=== PATIENT | female | born 1950 | race Caucasian/White ===

== ENCOUNTER 2021-07-02 05:06 | Observation (INO) ==
--- NOTE | 2021-06-18 14:16 | PAT Medication Instructions ---
Medication Instructions Date of Service June 18, 2021 Home Medications citalopram 40 mg tablet (Celexa) 40 mg PO HS omeprazole magnesium 20 mg tablet,delayed release (Prilosec OTC) 20 mg PO DAILY PRN Take morning of surgery With a small sip of water, OTHERWISE NOTHING TO EAT OR DRINK AFTER MIDNIGHT: omeprazole magnesium 20 mg tablet,delayed release (Prilosec OTC) 20 mg PO DAILY PRN (if needed) Take evening before surgery citalopram 40 mg tablet (Celexa) 40 mg PO HS omeprazole magnesium 20 mg tablet,delayed release (Prilosec OTC) 20 mg PO DAILY PRN (if needed) Other Notes If you have any questions please call us at [phone] or [phone] or [phone] or [phone]
--- NOTE | 2021-06-21 11:26 | Anesthesiology Consultation ---
Date of Service June 21, 2021 Assessment & Plan (1) Encounter for pre-operative examination: COVID screening: Per assessment on 06/21: Travel screen negative, no known COVID- 19 positive contacts or current COVID-19 related symptoms. Patient vaccinated. Surgeon arranging preop COVID testing. Awaiting results. Chart Review Chart Review: Acceptable Risk for Surgery and Patient seen in Pre Admission Testing Teaching & Discussion Pre-Anesthesia Teaching/Discussion Notes: Instructed NPO after midnight before surgery,except medications with 15 cc of water. Medication instructions provided according to the PAT guidelines. History Surgery Operation Date: 07/02/21 13:20 Proposed Procedures p Left Total Hip Replacement - Isaac Gonzalez MD Height/Weight Height: 4 ft 11 in Weight: 64.1 kg Allergies Allergy/AdvReac Type Severity Reaction Status Date / Time Bactrim Allergy Unknown . Unverified 06/02/11 20:01 naproxen Allergy Unknown Dyspnea, Verified 06/21/21 11:25 chest pain, feet swelling Penicillins Allergy Unknown Hives Verified 06/18/21 12:05 sulfamethoxazole AdvReac Unknown N/V, Verified 06/21/21 11:25 abdominal pain trimethoprim AdvReac Unknown N/V, Verified 06/21/21 11:25 abdominal pain Medications Home Medications Medication Instructions Recorded Confirmed Last Taken citalopram 40 mg tablet (Celexa) 40 mg PO HS 07/20/19 06/18/21 07/27/19 20:00 omeprazole magnesium 20 mg 20 mg PO DAILY PRN 06/18/21 06/18/21 Unknown tablet,delayed release (Prilosec OTC) Past Medical History Medical History Acid reflux Anxiety and depression Bilateral hip joint arthritis Borderline high cholesterol Hiatal hernia Exercise / Class Metabolic Activity II 4-5 Yardwork/Stairs/Walk up hill (one FS (no CP, no SOB)) Past Family History Family History Other Diabetes Heart disease Stroke Past Surgical History Surgical History History of colonoscopy History of endoscopy History of esophagogastroduodenoscopy (EGD) History of left cataract surgery History of repair of rotator cuff History of right cataract surgery History of tonsillectomy History of total left knee replacement (TKR) Past Anesthesia History No Hx of Anesthesia Complications and No Family Hx of Anesthesia Complications History of PONV No Hx of PONV and Hx of Motion Sickness Social History Smoking Status: Never smoker Do You Dip or Chew Tobacco: No Hx Alcohol Use: Yes Alcohol type: wine alcohol intake frequency: holidays/special occasions only Hx Substance Use: No substance use type: does not use Review of Systems Patient denies chest pain, shortness of breath, dyspnea on exertion, fever, chills, cough, wheezing, palpitations. Physical Exam Vital Signs VITALS BP 110/74 P 56 TEMP 98.0 SP02 95%RA RESP 16 PHYSICAL Mildly decreased cervical extension range of motion. Full TMJ range of motion. TMD 3 finger breaths Mallampati Score 1 Dentition: missing molar Lungs: clear throughout to auscultation Cardiac: regular rate and rhythm, no murmurs noted Spine: normal Carotid arteries: negative bruit Extremities: no edema Lab Results Anesthesia Preop Results Results Anesthesia Widget: WBC 5.67 K/uL (4.8-10.8) 06/21/21 Hgb 13.6 g/dL (12.0-16.0) 06/21/21 Hct 41.8 % (37-47) 06/21/21 Plt 278 K/uL (130-400) 06/21/21 Na 142 mmol/L (136-145) 06/21/21 K 4.5 mmol/L (3.5-5.1) 06/21/21 Cl 110 mmol/L (98-107) H 06/21/21 CO2 30 mmol/L (21-32) 06/21/21 BUN 18 mg/dl (7-18) 06/21/21 Creat 0.76 mg/dl (0.6-1.2) 06/21/21 Glucose Level 100 mg/dl (70-99) H 06/21/21 PT 9.6 Seconds (9.0-12.0) 06/21/21 PTT 23.6 Seconds (21.0-31.0) 06/21/21 INR 0.9 (0.9-1.1) 06/21/21 Blood Type A Negative 06/21/21 Antibody Screen NEGATIVE 06/21/21 Testing Electrocardiogram Date: 06/21/21 SB at 57bpm. Otherwise normal ECG. Chest X-Ray Date: 06/21/21 FINDINGS: PA and lateral chest radiographs are compared to study dated 06/03/2014. Correlation is made with chest CT dated 06/02/2011. The cardiomediastinal silhouette is unremarkable. The lungs appear hyperinflated. There is bibasilar atelectasis. No airspace consolidation or pleural effusion is identified. Right lower lobe pulmonary nodules measure up to 4 mm. These were also seen on 07/19/[address] There are scattered calcified granulomas. There is no pneumothorax. The skeletal structures are osteopenic. The bony thorax appears intact. IMPRESSION: No active disease in the chest. Right lower lobe pulmonary nodules measure up to 4 mm and there are scattered calcified granulomas. These were also seen on a [address] Any follow-up should be based on clinical grounds. Patient denies cardiopulmonary complaints and reports good functional status at PAT visit from same day (06/21/21). Will forward report to PCP for continuity of care.
[2021-07-02] MEDS ORDERED: ceFAZolin 2000MG 2,000 MG/15 ML SYR IV SCH (06:00)
[2021-07-02] MEDS ORDERED: TRANEXAMIC ACID 1,000 MG **IV Pre-op IV SCH (06:00)
[2021-07-02] MEDS ORDERED: BUPIVACAINE LIPOSOME/PF 266 MG, BUPIVACAINE/EPINEPHRINE 50 ML, SODIUM CHLORIDE 0.9% 30 ... INFIL SCH (06:00)
[2021-07-02] MEDS ORDERED: ACETAMINOPHEN 500 MG TAB PO SCH (06:00)
[2021-07-02] MEDS ORDERED: Scopolamine 1 MG TDSY TD SCH (06:00)
[2021-07-02] MEDS ORDERED: GABAPENTIN 300 MG CAP PO SCH (06:00)
[2021-07-02] MEDS ORDERED: LR 60ML/HR IV SCH (06:00)
[2021-07-02] MEDS ORDERED: LR 15ML/HR IV SCH (06:00)
[2021-07-02] MEDS ORDERED: FAMOTIDINE 20 MG TAB PO SCH (06:00)
[2021-07-02] MEDS ORDERED: BUPIVACAINE 0.5 % 5 MG/1 ML PF 10ML VIAL ONE (06:18)
[2021-07-02] MEDS ORDERED: EPINEPHrine INJ 1 MG/ML AMP ONE (06:44)
[2021-07-02] MEDS ORDERED: BUPIVACAINE 0.5 % 5 MG/1 ML MPF 30ML VIAL ONE (06:44)
[2021-07-02] MEDS ORDERED: MIDAZOLAM HCL 1 MG/ML 2ML VIAL ONE (06:48)
[2021-07-02] MEDS ORDERED: fentaNYL citrate 100 MCG/2 ML VIAL ONE (06:48)
[2021-07-02] MEDS ORDERED: MoRPHine SULFATE PF 1 MG/ML 10 ML AMP/VIAL ONE (06:48)
--- NOTE | 2021-07-02 06:54 | History & Physical Bridge Note ---
Date of Service July 02, 2021 History & Physical Bridge Note I have examined the patient, reviewed the History & Physical and in the interval since the performance of the History & Physical I have noted the following changes of clinical significance: no changes noted
[2021-07-02] MEDS ORDERED: MEPERIDINE HCL 25 MG/ML CARP/VIAL IV PRN (06:59)
[2021-07-02] MEDS ORDERED: ePHEDrine sulfate 50 MG/ML AMP IV PRN (06:59)
[2021-07-02] MEDS ORDERED: LACTATED RINGER'S 500 ML IV PRN (06:59)
[2021-07-02] MEDS ORDERED: NALOXONE HCL 0.08 MG in SYRINGE 1.8 ML IV PRN (06:59)
[2021-07-02] MEDS ORDERED: ONDANSETRON INJ 2 MG/ML 2 ML VIAL IV PRN (06:59)
[2021-07-02] MEDS ORDERED: NALOXONE HCL 1 MG in SODIUM CHLORIDE 0.9% 1000ML 1,000 ML IV PRN (06:59)
[2021-07-02] MEDS ORDERED: NALOXONE HCL 0.4 MG/1 ML VIAL/CARP IV PRN ×2 (06:59→10:04)
[2021-07-02] MEDS ORDERED: NALBUPHINE HCL INJ 10 MG/ML AMP IV PRN (06:59)
[2021-07-02] MEDS ORDERED: MoRPHine SULFATE PF 1 MG/ML 10 ML AMP/VIAL INT SPINAL ONE (06:59)
[2021-07-02] MEDS ORDERED: NO NARCOTICS OR SEDATIVES SCH (07:00)
[2021-07-02] MEDS ORDERED: DC INTRASPINAL MORPHINE SCH (07:00)
[2021-07-02] MEDS ORDERED: SODIUM CHLORIDE 0.9% 1000ML 1,000 ML IV SCH (07:00)
[2021-07-02] MEDS ORDERED: PROPOFOL IV EMULSION 10 MG/ML 20 ML VIAL IV ONE (08:14)
[2021-07-02] MEDS ORDERED: LIDOCAINE 2% 2 ML VIAL/AMP(20MG/ML) INFIL ONE (08:14)
--- NOTE | 2021-07-02 08:26 | Post Operative Brief Note ---
PG Immediate Post Op with CF Date of Surgery July 02, 2021 Pre & Post Diagnosis Operation Date: 07/02/21 07:00 Pre-Op Diagnosis: Left Hip Osteoarthritis Post-Op Diagnosis: Left Hip Osteoarthritis I identified the patient and participated in the time-out.: Yes Procedure Operation Date: 07/02/21 07:00 Actual Procedures p Left Total Hip Replacement(Left) - Isaac Gonzalez MD Surgeon Isaac Gonzalez MD Hop Grower MARIE Bangura Estimated Blood Loss 200 Findings Consistent with Post-Op Diagnosis Fluids 1600 cc Specimens Specimen Description: Permanent Solution: A.) Left Femoral Head Drains Ledbetter Catheter (16 albanian 10ml balloon; inserted by Harshad Bangura PA-C without difficulty; urine output monitored throughout entire case by anesthesia staff) Anesthesia Type Spinal MAC Complications none Disposition Accompanied Patient To Recovery: Yes
--- NOTE | 2021-07-02 09:34 | Anesthesiology Progress Note ---
Date of Service July 02, 2021 Anesthesia Post Procedure Vital Signs Vital Signs: Temp Pulse Pulse Resp BP BP Pulse Ox 07/02/21 09:30 97.7 F 68 15 109/50 L 97 07/02/21 09:20 66 13 111/53 L 97 07/02/21 09:10 62 14 101/51 L 96 07/02/21 09:00 70 17 105/49 L 98 07/02/21 08:50 70 16 116/52 L 97 07/02/21 08:40 68 16 101/48 L 94 07/02/21 08:32 97.7 F 77 16 105/40 L 93 07/02/21 06:10 97.7 F 63 20 140/72 97 07/02/21 05:28 97.5 F L 66 18 164/71 H 97 Pain Intensity Left Hip: Pain Intensity: 7 Transfer of Care Handoff Completed per policy Notes Mental Status: alert / awake / arousable and participated in evaluation Patient Amnestic to Procedure: Yes Nausea / Vomiting: adequately controlled Pain: adequately controlled Airway Patency, RR, SpO2: stable & adequate BP & HR: stable & adequate Hydration State: stable & adequate Neuraxial Anesthesia: was administered and sensory block is resolving Anesthetic Complications: no major complications apparent and Pt Satisfied with anesthetic care
[2021-07-02] MEDS ORDERED: diphenhydrAMINE Capsule 25 MG CAP PO STA (09:52)
[2021-07-02] MEDS ORDERED: diphenhydrAMINE Capsule 25 MG CAP ONE (09:56)
[2021-07-02] MEDS ORDERED: ALUMINUM/MAGNESIUM SUSP 30 ML UDC PO PRN (10:04)
[2021-07-02] MEDS ORDERED: METOCLOPRAMIDE HCL INJ 5 MG/ML 2 ML VIAL IV PRN (10:04)
[2021-07-02] MEDS ORDERED: bisacodyL 10 MG SUPP PR PRN (10:04)
[2021-07-02] MEDS ORDERED: MAGNESIUM HYDROXIDE SUSP 30 ML UDC PO PRN (10:04)
--- NOTE | 2021-07-02 10:06 | XRay Report ---
SINGLE VIEW PELVIS; SINGLE VIEW LEFT HIP CLINICAL HISTORY: Postoperative examination. FINDINGS: An AP portable view of the hips and pelvis with a crosstable lateral portable view of the l eft hip hip are obtained. A bipolar left hip hip arthroplasty is in near-anatomic alignment. At least 2 cortical lag screws transfix the acetabular cup. No acute fracture is identified. There are expect ed postoperative changes overlying the left hip hip including skin clips, subcutaneous gas, and soft tissue swelling. Mild degenerative joint space narrowing is noted in the right hip. A Ledbetter catheter is in place. Phleboliths are seen in the pelvis. IMPRESSION: Expected postoperative findings status post left hip hip arthroplasty. No acute fracture is seen. ACT 112: Negative or not required by law. Electronically signed by: Vini Beckwith M.D. 07/02/2021 10:05 AM
[2021-07-02] MEDS ORDERED: PANTOprazole 40 MG TAB PO PRN (10:14)
[2021-07-02] MEDS: SODIUM CHLORIDE 0.9% 1000ML 1,000 ML IV SCH ×2 (11:09→20:11)
[2021-07-02] MEDS: MULTIVITAMIN TAB PO SCH (11:10)
[2021-07-02] MEDS: DOCUSATE SODIUM 100 MG CAP PO SCH ×2 (11:10→20:13)
[2021-07-02] MEDS: KETOROLAC TROMETHAMINE 15 MG/ML VIAL IV SCH ×3 (11:13→21:04)
[2021-07-02] MEDS: diphenhydrAMINE 50 MG/ML VIAL IV PRN ×2 (13:18→19:42)
[2021-07-02] MEDS: ACETAMINOPHEN 500 MG TAB PO SCH ×2 (13:22→21:04)
[2021-07-02] MEDS ORDERED: TRANEXAMIC ACID / 0.7% NACL 1,000 MG/100 ML BAG IV SCH (14:30)
[2021-07-02] MEDS: ceFAZolin 1000MG 1,000 MG/7.5 ML SYR IV SCH ×2 (14:56→22:16)
[2021-07-02] MEDS: Scopolamine CHECK PATCH PLACEMENT SCH ×2 (15:34→23:09)
[2021-07-02] MEDS: ASCORBIC ACID 500 MG TAB PO SCH (15:36)
[2021-07-02] MEDS ORDERED: NURSING DECISION MEDICATION ONE (16:26)
[2021-07-02] MEDS ORDERED: COUGH DROP (SUGAR FREE) LOZ 24 LOZ/1 BOX BUCCAL PRN (16:32)
--- NOTE | 2021-07-02 19:10 | Operative Report ---
Post Operative Report Pre & Post Diagnosis Operation Date: 07/02/21 07:00 Pre-Op Diagnosis: Left Hip Osteoarthritis Post-Op Diagnosis: Left Hip Osteoarthritis I identified the patient and participated in the time-out.: Yes Procedure Operation Date: 07/02/21 07:00 Actual Procedures p Left Total Hip Replacement(Left) - Isaac Gonzalez MD Surgeon Isaac Gonzalez MD Material Handler MARIE Bangura Estimated Blood Loss 200 Findings Consistent with Post-Op Diagnosis Operative findings revealed moderately advanced hip arthritis. Not a lot of osteophytes. She did have a second joint effusion. Fluids 1600 cc Specimens Left femoral head sent for pathology Drains None Anesthesia Type Spinal MAC Complications none Disposition Accompanied Patient To Recovery: Yes Indications Patient 70-year-old female is had a several year history of increasing left hip pain discomfort is gotten singly [place] worse over the past year. She been through extensive conservative treatment: Oral medicines and injections which provide some temporary relief. Pain is become more disabling. X-ray showed moderate hip arthritis. She had a diagnostic intra-articular injection which helped her for several weeks. She elected proceed with total hip arthroplasty. Patient was adamant about proceeding with hip replacement. Description of Procedure Operative implants consist of: 1 Biomet G7 size 46 mm acetabular shell. 2. 6.5 cancellous acetabular screws 135 mm length 120 mm length. 3. [place] hole plaster machine operator. 4. Highly cross-linked polyethylene liner with a 46 mm outer diameter 32 mm inner diameter. 5. [place] size 10 KLA short neck 125 degree angle femoral component. 6. +5/32 mm ceramic articular ball. The patient was taken to the operating, identified, placed on the operating table supine position but all contact areas were properly padded. IV antibiotics tried by anesthesia team. Spinal anesthetic had been implemented holding area. Ledbetter catheter was placed in sterile fashion. Patient then placed in the right lateral decubitus position. An axillary roll was placed. A Stulberg hip positioner was used for positioning. Left hip and leg were then prepped and draped in usual sterile fashion. A posterior lateral approach to the left hip was then performed to a curvilinear incision centered over the greater trochanter. Sharp dissection got through subcutaneous tissue down to the IT band gluteal fascia the IT band gluteal fascia was incised longitudinally in line with skin incision. The underlying greater bursa was excised. The piriformis and external rotators were tagged and taken off the posterior aspect hip joint capsule. Great care was taken throughout the procedure protect the sciatic nerve at all times. Posterior capsulotomy was then performed leaving a large flap for later repair. Hip was internally rotated and dislocated. A femoral neck osteotomy cut was made with Final Cut 10 mm above the lesser trochanter. Femoral head was removed and sent for pathology. The femur was retracted anteriorly. Attention drawn the acetabulum. The acetabular labrum was excised per the pulmonary facet fat was excised. Sequential reaming the acetabular was then performed begin with size 43 and progressing up to 45. I did reamed with a 46 and then placed a 46 mm cup in about 40 degrees lateral opening and 20 degrees of anteversion. It was fixed with two 6.5 cancellous acetabular screws. Trial liner was placed. Attention drawn the femur. The proximal femur was entered with a cookie-cutter followed by canal finder. I then broached beginning with size 8 and progressing up to a 10. Got excellent fit at 10. Calcar reamer was used smooth and off the calcar. Then trialed the hip. The standard neck was just too tight. I then used the short neck implant and it felt appropriate. Hip was fully stable leg lengths are equal and soft tissue tension was appropriate. I elect to place these implants. Nupathe all trial implants were removed. An apex hole plaster machine operator was placed. Highly cross- linked polyethylene liner was placed. I Te size 10 KLA short neck 125 degree angle femoral stem was impacted in position. +5/32 ceramic articular ball was placed. Hip was located once again found to be stable. Attention drawn toward closing. The wounds irrigated scope soft pulsatile lavage solution. I did inject locally with 60 cc of half percent Marcaine with epinephrine. The posterior capsule and external rotators then repaired through drill holes in the posterior trochanter with #2 Tycron suture. The IT band gluteal fascia then closed in 1 PDS suture running fashion for subcutaneous tissues then closed in 2 layers with deep layer #2 Vicryl suture in the subcutaneous tissues with 2-0 Dexon suture in a buried interrupted fashion. The skin was closed with skin blanco. A Prevena VAC dressing was then applied. The patient was then transferred to the recovery room in stable condition. Patient tolerated procedure well and there were no complications. Harshad Bangura, my physician dermatology physician assistant, was present for the entire procedure. His assistance was essential and required for appropriate patient positioning, prepping and draping, surgical exposure, performing the technical details of the operation, placement the implants, closure of the wound, and placement of the sterile bandage. I attest to the content of the Intraoperative Record and any orders documented therein. Any exceptions are noted below.
[2021-07-02] MEDS: CITALOPRAM 40 MG TAB PO SCH (20:11)
[2021-07-02] MEDS: SENNA 8.6 MG TAB PO SCH (20:11)
[2021-07-03] MEDS ORDERED: ONDANSETRON INJ 2 MG/ML 2 ML VIAL IV PRN (01:00)
[2021-07-03] MEDS: HYDROmorphone INJ 0.5 MG/0.5 ML SYR IV PRN ×2 (01:34→16:27)
[2021-07-03] MEDS: KETOROLAC TROMETHAMINE 15 MG/ML VIAL IV SCH ×5 (04:16→22:46)
[2021-07-03] MEDS: ACETAMINOPHEN 500 MG TAB PO SCH ×3 (05:57→22:33)
[2021-07-03] MEDS: traMADol HCL 50 MG TABLET PO PRN ×3 (06:22→20:35)
[2021-07-03 06:45] LABS: Basophils # (auto) 0.02 K/uL (0-0.2); Basophils % (auto) 0.2 %; Eosinophils # (auto) 0.11 K/uL (0-0.5); Eosinophils % (auto) 1.3 %; Hemoglobin 10.6 g/dL (12.0-16.0); Immature Granulocytes # (auto) 0.02 K/uL (0.00-0.02); Immature Granulocytes % (auto) 0.2 %; Lymphocytes # (auto) 1.72 K/uL (1.2-3.4); Lymphocytes % (auto) 20.5 %; Mean Corpuscular Hemoglobin 32.2 pg (25-34); Mean Corpuscular Hgb Conc 32.1 g/dL (32-36); Mean Corpuscular Volume 100.3 fL (80-100); Mean Platelet Volume 10.5 fL (7.4-10.4); Monocytes # (auto) 1.02 K/uL (0.11-0.59); Monocytes % (auto) 12.1 %; Neutrophils # (auto) 5.51 K/uL (1.4-6.5); Neutrophils % (auto) 65.7 %; Platelet Count 210 K/uL (130-400); RDW Coefficient of Variation 13.4 % (11.5-14.5); RDW Standard Deviation 49.3 fL (36.4-46.3); Red Blood Count 3.29 M/uL (4.2-5.4)
[2021-07-03] MEDS: MULTIVITAMIN TAB PO SCH (07:14)
[2021-07-03] MEDS: ASCORBIC ACID 500 MG TAB PO SCH ×2 (07:14→16:23)
[2021-07-03] MEDS: DOCUSATE SODIUM 100 MG CAP PO SCH ×2 (07:15→20:36)
[2021-07-03] MEDS: Scopolamine CHECK PATCH PLACEMENT SCH ×3 (07:15→23:48)
[2021-07-03 07:18] LABS: BUN Creatinine Ratio 13.1 (10-20); Calcium 7.6 mg/dl (8.5-10.1); Creatinine Clr Calc Pharmacy 44.8 ml/min; Est GFR (African American) 69.1 ml/min; Est GFR (Non-African American) 59.6 ml/min; Potassium 3.8 mmol/L (3.5-5.1)
[2021-07-03] MEDS ORDERED: dexAMETHasone 10 MG in SYRINGE 0 ML IV SCH (08:00)
--- NOTE | 2021-07-03 16:20 | Progress Notes ---
DATE OF SERVICE: 07/03/2021 SUBJECTIVE: A 70-year-old white female postoperative day 1 from left hip replacement. She is doing okay. She gets winded when she gets up and felt like she had a little bit of wheezing when she was w alking with therapy. Got kind of tired. Denies any chest pain or shortness of breath while resting. Pain has been reasonably well controlled. No other complaints. OBJECTIVE: VITAL SIGNS: Temperature 36.7. Vital signs are stable. PHYSICAL EXAMINATION: GENERAL: Shows a pleasant middle-aged female. Sitting up in bed, looks pretty comfortable. LUNGS: Clear to auscultation. HEART: Regular rate and rhythm. ABDOMEN: Soft, nontender, nondistended. EXTREMITIES: Grossly neurovascularly intact except as follows: Examination of the left leg reveals leg lengths to be equal. Dressing is clean, dry and intact. She got a Prevena VAC in place. Thigh is soft and supple. NEUROLOGIC: She is neurologically intact. LABORATORY DATA: Hemoglobin is 10.6. Hematocrit 33.0. Electrolytes are stable. ASSESSMENT: A 70-year-old female postoperative day 1 from left hip replacement, doing reasonably wel l. She gets short of breath with walking, which I think is somewhat just deconditioning. She was co mplaining of some wheezing, but I do not detect any wheezing on exam and she looks comfortable lying in bed. She feels like this may be related to her allergies. PLAN: 1. DVT prophylaxis includes thigh-high TEDs, SCDs, and aspirin twice a day. 2. PT, OT, weightbear as tolerated. Left total hip protocol. 3. Pain control, doing pretty well with current pain regimen. 4. Disposition: She is hoping to be discharged to home with some home health once adequately recove red and getting around safely. We will see how therapy goes tomorrow. Job ID: [id number]
[2021-07-03] MEDS: CITALOPRAM 40 MG TAB PO SCH (20:35)
[2021-07-03] MEDS: SENNA 8.6 MG TAB PO SCH (20:36)
[2021-07-04] MEDS: KETOROLAC TROMETHAMINE 15 MG/ML VIAL IV SCH (00:34)
[2021-07-04] MEDS: traMADol HCL 50 MG TABLET PO PRN ×2 (05:53→12:47)
[2021-07-04] MEDS: ACETAMINOPHEN 500 MG TAB PO SCH ×2 (05:53→13:46)
[2021-07-04] MEDS: MULTIVITAMIN TAB PO SCH (08:00)
[2021-07-04] MEDS: ASCORBIC ACID 500 MG TAB PO SCH (08:00)
[2021-07-04] MEDS: Scopolamine CHECK PATCH PLACEMENT SCH (08:01)
[2021-07-04] MEDS: DOCUSATE SODIUM 100 MG CAP PO SCH (08:01)
--- NOTE | 2021-07-04 08:47 | Progress Notes ---
DATE OF SERVICE: 07/04/2021. SUBJECTIVE: A 70-year-old female postop day 2 from a left hip replacement. She is doing better this morning. Getting around better. Pain is controlled. No chest pain or shortness of breath. Not fe eling dizzy or lightheaded. OBJECTIVE: VITAL SIGNS: Temperature 36.6. Vital signs are stable. GENERAL: Exam shows a pleasant middle-aged female. She is sitting up on bed, looks pretty comfortab le, eating breakfast. EXTREMITIES: Examination of the left leg reveals the leg to be well aligned. Her Prevena direct melissa ssings intact. Thigh is soft and supple. Hip is located. She is neurologically intact. ASSESSMENT: A 70-year-old female postop day 2 from a left hip replacement, doing pretty well. PLAN: 1. DVT prophylaxis include thigh-high TEDs, SCDs, and aspirin twice a day. 2. PT, OT, weightbear as tolerated. Left total hip protocol. 3. Pain control, doing well with current pain regimen. 4. Disposition and plan to discharge to home with some home health later today. Job ID: [id number]
== END 2021-07-04 14:28 | disposition home health service (06) ==
LOC: ASU 05:06 → PACUINP 05:06 → 3N 10:42